=== PATIENT | male | born 2000 | race Caucasian/White ===

== ENCOUNTER 2024-10-02 12:48 | Emergency (ER) | payer BC ==
[~2024-10-02] VITALS: Ht 182.9 cm; Wt 79.5 kg
[2024-10-02 12:54] VITALS: TEMP 98.6
--- NOTE | 2024-10-02 13:07 | ELECTROCARDIOGRAPH REPORT ---
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 Franco Vigil Measurements Intervals [place] Rate: 91 P: 77 [place]: 135 QRS: 81 QRSD: 91 T: 64 QT: 349 QTc: 430 Interpretive Statements Sinus rhythm ST elevation suggests acute pericarditis Baseline wander in lead(s) III Electronically Signed On 10-03-2024 15:45:[address] Franco Vigil Please click the below link to view image of tracing.
[2024-10-02 13:17] LABS: BASOPHILS # (AUTO) 0.1 X10'3 (0-0.2); BASOPHILS % (AUTO) 0.8 % (0-1); EOSINOPHILS # (AUTO) 0.2 X10'3 (0-0.9); EOSINOPHILS % (AUTO) 2.3 % (0-6); HEMATOCRIT 44.8 % (42.0-52.0); HEMOGLOBIN 15.4 g/dl (14.0-17.9); LYMPHOCYTES # (AUTO) 2.1 X10'3 (1.1-4.8); LYMPHOCYTES % (AUTO) 21.4 % (21-51); MEAN CORPUSCULAR HEMOGLOBIN 29.3 PG (27.0-31.0); MEAN CORPUSCULAR HGB CONC 34.3 g/dL (33.0-36.5); MEAN CORPUSCULAR VOLUME 85.5 FL (78-98); MEAN PLATELET VOLUME 7.3 FL (7.4-10.4); MONOCYTES # (AUTO) 0.6 X10'3 (0-0.9); MONOCYTES % (AUTO) 6.5 % (2-12); NEUTROPHILS # (AUTO) 6.7 X10'3 (1.8-7.7); PLATELET COUNT 366 X10'3 (140-440); RED BLOOD COUNT 5.24 X10'6 (4.70-6.10); RED CELL DISTRIBUTION WIDTH 12.5 % (11.5-14.5); WHITE BLOOD COUNT 9.8 X10'3 (4.5-11.0)
--- NOTE | 2024-10-02 13:20 | RADIOLOGY REPORT ---
CHEST RADIOGRAPH Indication: CP Technique: Single frontal view of the chest was obtained COMPARISON: None FINDINGS: Lines and Tubes: None Lungs: Clear Pleura: No effusion. No pneumothorax. Cardiomediastinal contours: Unremarkable Bones: Unremarkable IMPRESSION: No acute disease.
[2024-10-02 13:39] LABS: ALANINE AMINOTRANSFERASE 26 U/L (12-78); ALBUMIN 4.6 G/DL (3.4-5.0); ALBUMIN/GLOBULIN RATIO 1.3 (1.1-1.5); ALKALINE PHOSPHATASE 86 IU/L (46-116); ANION GAP 9 (8-16); ASPARTATE AMINO TRANSFERASE 18 U/L (10-37); BILIRUBIN,TOTAL 0.4 MG/DL (0.1-1.0); BLOOD UREA NITROGEN 10 MG/DL (7-18); BUN/CREATININE RATIO 11.1 (10.0-20.0); CALCIUM 9.2 MG/DL (8.5-10.1); CHLORIDE 106 MMOL/L (99-107); GLUCOSE 96 MG/DL (70-104); PRO BRAIN NATRIURETIC PEPTIDE < 30 PG/ML (0-125); SODIUM 143 MMOL/L (135-145); TOTAL CARBON DIOXIDE 28.1 MMOL/L (24-32); TOTAL PROTEIN 8.1 G/DL (6.4-8.2); eCRCL 139 ML/MIN; eGFR > 90 ML/MIN
--- NOTE | 2024-10-02 15:57 | Physician Documentation ---
History of Present Illness ~ Chief Complaint: Dizziness Stated Complaint: NEAR SYNCOPE Time Seen by MD: 15:42 OK to notify your PCP?: Yes Primary Medical Doctor: JEFF Source: patient Mode of Arrival: POV Exam Limitations: no limitations HPI This is a 24-year-old male who states that is today he was at work where he was sitting for a meeting and began to feel off. He says he got up to get some water and became dizzy and almost passed out but did not completely pass out. He states he was cold and clammy during this episode that resolved quickly on its own. He says now he feels little tired but aside from that he was feeling fine. He denies any point having chest pain or acute visual disturbances. He denies shortness of breath. He denies headache. He states he has had an episode like this in the past. Medication Reconciliation Allergies: Uncoded Allergies: LISINIPRIL (Allergy, Mild, 10/02/24) "chest tightness" Physical Exam Vital Signs: Temperature: 98.6, Heart Rate: 81, Respiratory Rate: 18, BP: 140/96, Pulse Oximetry: 99, Weight: 79.550 Oxygen Flow Rate: 0 Pulse Oximetry Reflects: adequate oxygenation General Appearance: alert, WD/WN, no apparent distress Neck: non-tender, full range of motion, supple, normal inspection, trachea midline Head: normal Pupils/EOM/Fundus: PERRLA EENT: normal ENT inspection Respiratory No accessory muscle use or retractions. Lungs are clear to auscultation all anthony. Cardiovascular No rubs, gallops or murmurs. No peripheral edema, cyanosis or clubbing of the extremities. 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, normal hearing, normal speech Coordination / Gait: normal gait Cerebellar Function: normal Psych: appropriate Progress Results/Orders Reviewed/noted all lab results: Yes Results/Orders Vital Signs 10/02/24 10/02/24 10/02/24 12:54 15:30 15:34 Temp 98.6 Pulse 88 81 Resp 16 17 18 B/P (MAP) 130/77 140/96 (111) Pulse Ox 99 99 O2 Flow Rate 0 Laboratory Tests Test 10/02/24 13:04 10/02/24 15:09 White Blood Count 9.8 Red Blood Count 5.24 Hemoglobin 15.4 Hematocrit 44.8 Mean Corpuscular Volume 85.5 Mean Corpuscular Hemoglobin 29.3 Mean Corpuscular Hemoglobin Concent 34.3 Red Cell Distribution Width 12.5 Platelet Count 366 Mean Platelet Volume 7.3 L Neutrophils (%) (Auto) 69.0 Lymphocytes (%) (Auto) 21.4 Monocytes (%) (Auto) 6.5 Eosinophils (%) (Auto) 2.3 Basophils (%) (Auto) 0.8 Neutrophils # (Auto) 6.7 Lymphocytes # (Auto) 2.1 Monocytes # (Auto) 0.6 Eosinophils # (Auto) 0.2 Basophils # (Auto) 0.1 CBC Comment Sodium Level 143 Potassium Level 4.0 Chloride Level 106 Carbon Dioxide Level 28.1 Anion Gap 9 Blood Urea Nitrogen 10 Creatinine 0.90 Estimated GFR/1.73 m2 > 90 BUN/Creatinine Ratio 11.1 Glucose Level 96 Calcium Level 9.2 Total Bilirubin 0.4 Aspartate Amino Transf (AST/SGOT) 18 Alanine Aminotransferase (ALT/SGPT) 26 Alkaline Phosphatase 86 Troponin I High Sensitivity 5 6 Pro-B-Type Natriuretic Peptide < 30 Total Protein 8.1 Albumin 4.6 Globulin 3.5 Albumin/Globulin Ratio 1.3 Chemistry Comments Troponin I High Sens Percent Delta 20 Troponin I Hi Sens Absolute Change 1 EKG/XRAY/CT/US/VASC/MRI EKG : Intepreting Monitor?: No Additional Comment Twelve lead EKGs interpreted by me: Sinus rhythm rate of 91. AST elevation suggest acute pericarditis versus early repolarization. Baseline wander in leads three Chest X-Ray : Interpreted By: self Views: 1 VIEW Additional Comments Chest x-ray one view interpreted by me: No acute disease process. The cardiac silhouette and lung anthony are appropriate. No obvious bony abnormalities. Soft tissues unremarkable. Medical Decision Making Findings The patient appears to have a presyncopal and/or vasovagal reaction earlier today. This was a very brief episode and now he states he feels fine. The patient was an otherwise healthy 24-year-old male with no significant past medical history and no risk factors for cardiovascular or neurovascular disease. His workup was all within normal limits. I discussed this with the patient and instructed him to stay out of the heat, keep himself well hydrated and to get rest. Follow up with the primary care physician for recheck in the next couple of days and return to the ER for any worsening or concerning symptoms. Additional Information Near-syncope. Vasovagal reaction. Doubt significant cardiovascular or neurovascular etiologies Departure Disposition: 01 HOME / SELF CARE / HOMELESS Impression: Primary Impression: Vasovagal near syncope Condition: Stable Discharge Instructions: Near-Syncope Additional Instructions: The lab work, chest x-ray and EKG performed today were all within normal limits. Make sure you keep herself well hydrated stay out of the heat. Eat a balanced diet. Follow up with the primary care physician for recheck in the next one or two days and return to the ER for any worsening or concerning symptoms. Referrals: NO PRIMARY CARE PROVIDER (PCP) Signature Scribe Signature: No scribe Attestation: The note accurately reflects work and decisions made by me.Lee HENRIQUEZ 10/02/24 15:57 LEE FITZGERALD October 02, 2024 15:57
[2024-10-02 16:06] VITALS: BP 119/95; PULSE 91; RESP 18; O2SAT 96
== END 2024-10-02 16:05 | disposition home or self-care (01) ==
LOC: ER 12:49
DX: R55 Syncope and collapse (principal)
CPT/HCPCS: 36415; 71045; 80053; 83880; 84484; 85025; 93005; 99285